=== PATIENT | male | born 1960 | race Caucasian/White ===

== ENCOUNTER 2020-05-08 19:35 | Emergency (ER) | payer OTHER ==
[~2020-05-08] VITALS: Ht 182.9 cm; Wt 99.8 kg
[~2020-05-08 19:35] MED LIST: ATACAND32 MG; NORVASC10 MG
[2020-05-08] MEDS ORDERED: LIPITOR20 MG PO (19:49)
== END 2020-05-08 20:38 | disposition home or self-care (01) ==
LOC: ER 19:35
DX: T16.2XXA Foreign body in left ear, initial encounter (principal); W45.8XXA Other foreign body or object entering through skin, initial encounter; H93.8X2 Other specified disorders of left ear; Y93.89 Activity, other specified; Y92.89 Other specified places as the place of occurrence of the external cause; Y99.8 Other external cause status

== ENCOUNTER 2021-11-27 12:50 | Inpatient (IN) | payer OTHER ==
[~2021-11-27] VITALS: Ht 208.3 cm; Wt 113.4 kg
[~2021-11-27 12:50] MED LIST changes: +LIPITOR20 MG PO
--- NOTE | 2021-11-27 13:08 | NUR ---
SE RECIBE PTE ALERTA Y ORIENTADO X3 REFIERE QUE TIENE DOLOR DE ELLE DESDE BRITNEY. SE LUCAS SIGNOS VITALES Y SE SANDRA EN KAREN DE ESPERA PARA SER EVALUADO..
--- NOTE | 2021-11-27 14:42 | NUR ---
SE RECIBE PACIENTEN ICU, SE UBICA PACIENTE EN GRAYSON, SE COLECTAN MUESTRAS Y SE CANALIZA BAJO MEDIDAS ASEPTICAS SE ADMINISTRAN MEDICAMENTOS JAYLON ORDEN Y SE CONECTA PACIENTE A MONITOR CARDIACO Y OXIMETRIA DE PUL[place]. ESTUDIO DE OMI X ES REALIZADO POR PERSONAL CORRESPONDIENTE.
--- NOTE | 2021-11-27 15:19 | NUR ---
SE RECIBE PACIENTE ALERTA Y ORIENTADO X3 EN CAMA #2 EN AREA DE CRITICO CONECTADO A MONITOR CARDIACO Y OXIMETRIA DE [place]. PTE CON VENOPUNCION PATENTE Y STEPHEN DE EDEMA BAJANDO 0.9NSS@100ML Y TRIDIL @1ML/HR. SE MONITOREAN LOS SV Y SE MANTIENE BAJO OBSERVACION.
[2021-11-28] MEDS ORDERED: LORATADINE10 MG (10:46)
== END 2021-12-02 20:20 | disposition home or self-care (01) | DRG 305 ==
LOC: ER 12:50 → MEDJ 20:16
PROVIDERS: ADMIT Internal Medicine; ATTEND Internal Medicine
PROC: 4A12X4Z Monitoring of Cardiac Electrical Activity, External Approach (ICD-10-PCS; principal; 2021-11-27)
PROC: B246ZZZ Ultrasonography of Right and Left Heart (ICD-10-PCS; 2021-11-27)
PROC: 3E0F7SF Introduction of Other Gas into Respiratory Tract, Via Natural or Artificial Opening (ICD-10-PCS; 2021-11-27)
PROC: 4A02XM4 Measurement of Cardiac Total Activity, External Approach (ICD-10-PCS; 2021-11-30)
PROC: 3E033HZ Introduction of Radioactive Substance into Peripheral Vein, Percutaneous Approach (ICD-10-PCS; 2021-11-30)
DX: I16.1 Hypertensive emergency (principal); I20.0 Unstable angina; I10 Essential (primary) hypertension; Z20.822 Contact with and (suspected) exposure to COVID-19